=== PATIENT | male | born 1955 | race Caucasian/White ===

== ENCOUNTER 2016-11-11 08:02 | Day surgery (SDC) | payer BC ==
[~2016-11-11 08:02] MED LIST: FENTANYL 250 MCG/5 ML AMP IV PRN; LACTATED RINGERS 1,000 ML IV SCH; MIDAZOLAM HCL 5 MG/5 ML VIAL IV PRN
[2016-11-11] MEDS ORDERED: LACTATED RINGERS 1,000 ML ONE (08:09)
[2016-11-11] MEDS ORDERED: IV START KIT ONE (08:09)
[2016-11-11] MEDS ORDERED: FENTANYL 5 ML ONE (08:47)
[2016-11-11] MEDS ORDERED: MIDAZOLAM HCL 5 MG/5 ML VIAL ONE (08:47)
== END 2016-11-11 12:08 | disposition home or self-care (01) ==
LOC: SDC 08:02
PROVIDERS: ATTEND Internal Medicine Gastroenterology
PROC: 0DJD8ZZ Inspection of Lower Intestinal Tract, Via Natural or Artificial Opening Endoscopic (ICD-10-PCS; principal; 2016-11-11)
DX: Z12.11 Encounter for screening for malignant neoplasm of colon (principal); Z87.891 Personal history of nicotine dependence
CPT/HCPCS: 45378; J3010; J2250; J7120